=== PATIENT | female | born 1940 | race Caucasian/White ===

== ENCOUNTER 2018-02-17 08:50 | Inpatient (IN) | payer MEDICARE ==
[2018-02-13 10:54] LABS: BASOPHILS % (AUTO) 0.3 % (0-1); EOSINOPHILS % (AUTO) 0 % (0-6); LYMPHOCYTES # (AUTO) 1.6 X10'3 (1.1-4.8); LYMPHOCYTES % (AUTO) 23.7 % (21-51); MEAN CORPUSCULAR HEMOGLOBIN 30.3 PG (27.0-31.0); MEAN CORPUSCULAR HGB CONC 34.3 % (33.0-36.5); MEAN CORPUSCULAR VOLUME 88.5 FL (78-98); MEAN PLATELET VOLUME 9.1 FL (7.4-10.4); MONOCYTES # (AUTO) 0.5 X10'3 (0-0.9); MONOCYTES % (AUTO) 7.3 % (2-12); NEUTROPHILS # (AUTO) 4.6 X10'3 (1.8-7.7); NEUTROPHILS % (AUTO) 68.7 % (42-75); PRE OP HEMATOCRIT 35.7 % (35.0-45.0); PRE OP HEMOGLOBIN 12.2 g/dL (12.0-16.0); PRE OP PLATELET COUNT 200 X10'3 (140-440); RED BLOOD COUNT 4.04 X10'6 (4.20-5.60); RED CELL DISTRIBUTION WIDTH 13.8 % (11.5-14.5)
[2018-02-13 11:01] LABS: CLARITY,URINE CLEAR (Clear); COLOR,URINE YELLOW (Yellow); GLUCOSE, URINE NEGATIVE (Neg); KETONES,URINE NEGATIVE (Neg); LEUKOCYTE ESTERASE ,URINE NEGATIVE (Neg); NITRITES, URINE NEGATIVE (Neg); OCCULT BLOOD,URINE NEGATIVE (Neg); PH,URINE 5.5 (4.8-8.0); PROTEIN,URINE NEGATIVE (Neg); UROBILINOGEN,URINE 0.2 E.U/dL (0.2-1.0)
[2018-02-13 11:08] LABS: UA COLLECTION TYPE CLN CATCH MIDSTREAM
[2018-02-13 11:08] LABS: PRE OP INR 0.9 INR; PRE OP PROTIME 9.6 SECONDS (9.0-12.0)
[2018-02-13 11:12] LABS: ALBUMIN 3.5 G/DL (3.4-5.0); ALBUMIN/GLOBULIN RATIO 0.9 (1.1-1.5); ALKALINE PHOSPHATASE 80 IU/L (46-116); BLOOD UREA NITROGEN 21 MG/DL (7-18); BUN/CREATININE RATIO 23.6 (6.6-38.0); CALCIUM 9.3 MG/DL (8.5-10.1); CHLORIDE 105 MMOL/L (99-107); CREATININE 0.89 MG/DL (0.40-0.90); PRE OP ALT 19 U/L (30-65); PRE OP ANION GAP 6 (8-16); PRE OP AST 18 U/L (10-37); PRE OP BILIRUB, TOTAL 0.3 MG/DL (0.0-1.0); PRE OP GLUCOSE 90 MG/DL (70-104); PRE OP POTASSIUM 3.7 MMOL/L (3.4-5.1); PRE OP SODIUM 141 MMOL/L (135-145); TOTAL CARBON DIOXIDE 30.2 MMOL/L (24-32); TOTAL PROTEIN 7.5 G/DL (6.4-8.2); eGFR 62 ML/MIN
[2018-02-17] VITALS (20 sets, daily range): BP systolic 92–130; BP diastolic 42–80
[~2018-02-17] VITALS: Ht 160 cm; Wt 67.1 kg
[~2018-02-17 08:50] MED LIST: ALPR-623 PO; CALC-1051 PO; CHOL2000 PO; CLON0.1T PO; GLUC100017 PO; LACT1CAP65 PO; LEVO15TA5 PO; MELA3TAB PO; PANT20TA3 PO; VANCOMYCIN INJ 1000 MG in NORMAL SALINE 250ml IV.SOLN IV ONE; VENL150T3 PO; acetaminophen 325mg tablet PO ONE; ceFAZolin 2gm in dextrose, iso 100 ML IV ONE; cefazolin/dext.iso 2gm/50ml 50 ML IV ONE; famotidine 20mg tablet PO ONE; gabapentin 300mg capsule PO ONE; oxyCODONE SR 10mg (sust. release) tab PO ONE; ringers solution, lacted 1,000 ML IV SCH; tranexamic acid inj. 1,000 MG in normal saline 100ml IV soln 90 ML IV ONE
[2018-02-17] MEDS ORDERED: LIDOcaine 1% (10mg/ml) 2ml vial ONE (09:10)
[2018-02-17] MEDS ORDERED: bacitracin inj 150,000 UNIT in sodium chloride irrig. sol 3,000 ML IR ONE (10:00)
[2018-02-17] MEDS ORDERED: ROPIVAcaine 0.5% (5mg/ml) 30ml vial ONE ×2 (10:11→12:17)
[2018-02-17] MEDS ORDERED: MORPHINE SULFATE/PF 0.5 MG/ML 10ML AMPUL ONE (10:26)
[2018-02-17] MEDS ORDERED: dexamethasone sod phosphate 4mg/ml inj. ONE (10:28)
[2018-02-17] MEDS ORDERED: BUPIVAcaine/PF 7.5mg/ml (0.75%) 10ml vial ONE (10:28)
[2018-02-17] MEDS ORDERED: propofol inj 20 ML IV ONE ×3 (10:28)
[2018-02-17] MEDS ORDERED: ondansetron/PF 4mg/2ml inj ONE (10:28)
[2018-02-17] MEDS ORDERED: ceFAZolin 1000mg inj ONE (12:00)
[2018-02-17] MEDS ORDERED: ALPRAZolam 0.25mg tablet PO PRN (12:50)
[2018-02-17] MEDS ORDERED: HYDROmorphone inj. 0.5 MG/0.5 ML DISP.SYRIN IV PRN (12:55)
[2018-02-17] MEDS ORDERED: diphenhydrAMINE 25mg capsule PO PRN ×2 (12:55)
[2018-02-17] MEDS ORDERED: ondansetron/PF 4mg/2ml inj IV PRN (12:55)
[2018-02-17] MEDS ORDERED: magnesium hydroxide 30ml (MOM) UD suspension PO PRN (12:55)
[2018-02-17] MEDS ORDERED: bisacodyl 10mg suppository rectal RC PRN (12:55)
[2018-02-17] MEDS ORDERED: acetaminophen 325mg tablet PO PRN (12:55)
[2018-02-17] MEDS ORDERED: morphine 4 MG/ML inj SYRINge IV PRN (13:15)
[2018-02-17] MEDS: potassium cl 20mEq in 1/2 NS 1,000 ML IV SCH ×2 (15:13→23:52)
[2018-02-17] MEDS: gabapentin 300mg capsule PO SCH ×2 (15:34→20:09)
[2018-02-17] MEDS: ceFAZolin inj. 1,000 MG in normal saline 100ml IV soln 100 ML IV SCH ×2 (15:35→23:52)
[2018-02-17] MEDS ORDERED: vancomycin/NS 1 GM ADD-VANTAGE 250 ML IV SCH (20:00)
[2018-02-17] MEDS: celeCOXIB 100mg capsule PO SCH (20:09)
[2018-02-17] MEDS: sennosides 8.6mg tablet PO SCH (20:10)
[2018-02-17] MEDS: ascorbic acid 500mg tablet PO SCH (20:10)
[2018-02-17] MEDS: cloNIDine 0.1 mg tablet PO SCH (21:00)
[2018-02-17] MEDS: oxyCODONE/APAP 5-325mg tablet PO PRN (23:52)
[2018-02-18 02:00] VITALS: BP 113/53
[2018-02-18 04:23] LABS: BASOPHILS % (AUTO) 0.2 % (0-1); EOSINOPHILS # (AUTO) 0.1 X10'3 (0-0.9); EOSINOPHILS % (AUTO) 0.7 % (0-6); HEMATOCRIT 28.3 % (35.0-45.0); HEMOGLOBIN 9.8 g/dl (12.0-16.0); LYMPHOCYTES # (AUTO) 1.5 X10'3 (1.1-4.8); LYMPHOCYTES % (AUTO) 17.7 % (21-51); MEAN CORPUSCULAR HEMOGLOBIN 30.8 PG (27.0-31.0); MEAN CORPUSCULAR HGB CONC 34.6 % (33.0-36.5); MEAN CORPUSCULAR VOLUME 89.3 FL (78-98); MEAN PLATELET VOLUME 9.4 FL (7.4-10.4); MONOCYTES # (AUTO) 0.8 X10'3 (0-0.9); MONOCYTES % (AUTO) 9.5 % (2-12); NEUTROPHILS # (AUTO) 6.1 X10'3 (1.8-7.7); NEUTROPHILS % (AUTO) 71.9 % (42-75); PLATELET COUNT 161 X10'3 (140-440); RED BLOOD COUNT 3.17 X10'6 (4.20-5.60); RED CELL DISTRIBUTION WIDTH 13.7 % (11.5-14.5); WHITE BLOOD COUNT 8.5 X10'3 (4.5-11.0)
[2018-02-18 04:26] LABS: INR 1.3 INR; PROTHROMBIN TIME 13.8 SECONDS (9.0-12.0)
[2018-02-18 04:36] LABS: ANION GAP 8 (8-16); CHLORIDE 105 MMOL/L (99-107); POTASSIUM 3.8 MMOL/L (3.5-5.1); SODIUM 139 MMOL/L (135-145); TOTAL CARBON DIOXIDE 26.4 MMOL/L (24-32)
[2018-02-18 05:30] VITALS: BP 104/62
[2018-02-18] MEDS: oxyCODONE/APAP 5-325mg tablet PO PRN ×2 (05:36→17:27)
[2018-02-18] MEDS: pantoprazole 40mg Tablet.DR PO SCH (07:30)
[2018-02-18] MEDS: multivitamins, therapeutics tablet PO SCH (08:00)
[2018-02-18] MEDS ORDERED: non-formulary drug (Pantoprazole Sodium (Protonix) 1 TAB) PO SCH (08:00)
[2018-02-18] MEDS: celeCOXIB 100mg capsule PO SCH ×2 (08:00→20:30)
[2018-02-18] MEDS: venlafaxine XR 75mg capsule (Q24H) PO SCH (08:00)
[2018-02-18] MEDS: ascorbic acid 500mg tablet PO SCH ×2 (08:00→20:30)
[2018-02-18] MEDS ORDERED: non-formulary drug (Venlafaxine HCl (Venlafaxine HCl ER) 1 TAB) PO SCH (08:00)
[2018-02-18] MEDS: gabapentin 300mg capsule PO SCH ×3 (08:00→20:30)
[2018-02-18 10:00] VITALS: BP 97/60
[2018-02-18] MEDS ORDERED: warfarin 5mg tablet PO ONE (10:00)
[2018-02-18] MEDS: potassium cl 20mEq in 1/2 NS 1,000 ML IV SCH ×3 (12:14→20:52)
[2018-02-18 14:30] VITALS: BP 134/62
[2018-02-18 18:00] VITALS: BP 103/56
[2018-02-18] MEDS: sennosides 8.6mg tablet PO SCH (20:30)
[2018-02-18] MEDS: cloNIDine 0.1 mg tablet PO SCH (21:00)
[2018-02-18 22:00] VITALS: BP 121/61
[2018-02-19] MEDS: potassium cl 20mEq in 1/2 NS 1,000 ML IV SCH ×2 (04:52→09:26)
[2018-02-19 05:00] VITALS: BP 145/72
[2018-02-19] MEDS: oxyCODONE/APAP 5-325mg tablet PO PRN ×3 (05:27→14:32)
[2018-02-19 06:04] LABS: BASOPHILS % (AUTO) 0.3 % (0-1); EOSINOPHILS # (AUTO) 0.1 X10'3 (0-0.9); EOSINOPHILS % (AUTO) 1.1 % (0-6); HEMATOCRIT 30.5 % (35.0-45.0); HEMOGLOBIN 10.5 g/dl (12.0-16.0); LYMPHOCYTES # (AUTO) 1.9 X10'3 (1.1-4.8); LYMPHOCYTES % (AUTO) 27.6 % (21-51); MEAN CORPUSCULAR HEMOGLOBIN 30.7 PG (27.0-31.0); MEAN CORPUSCULAR HGB CONC 34.3 % (33.0-36.5); MEAN CORPUSCULAR VOLUME 89.5 FL (78-98); MEAN PLATELET VOLUME 9.2 FL (7.4-10.4); MONOCYTES # (AUTO) 0.7 X10'3 (0-0.9); MONOCYTES % (AUTO) 10.3 % (2-12); NEUTROPHILS # (AUTO) 4.2 X10'3 (1.8-7.7); NEUTROPHILS % (AUTO) 60.7 % (42-75); PLATELET COUNT 167 X10'3 (140-440); RED BLOOD COUNT 3.41 X10'6 (4.20-5.60)
[2018-02-19 06:12] LABS: INR 1.6 INR; PROTHROMBIN TIME 16.7 SECONDS (9.0-12.0)
[2018-02-19] MEDS: LACTOSE-FREE FOOD 237ML (BOOST) PO SCH ×3 (08:00→18:00)
[2018-02-19] MEDS: pantoprazole 40mg Tablet.DR PO SCH (08:19)
[2018-02-19] MEDS: celeCOXIB 100mg capsule PO SCH ×2 (08:19→20:13)
[2018-02-19] MEDS: ascorbic acid 500mg tablet PO SCH ×2 (08:20→20:13)
[2018-02-19] MEDS: gabapentin 300mg capsule PO SCH ×3 (08:20→21:39)
[2018-02-19] MEDS: multivitamins, therapeutics tablet PO SCH (08:20)
[2018-02-19] MEDS: venlafaxine XR 75mg capsule (Q24H) PO SCH (08:20)
[2018-02-19 10:00] VITALS: BP 144/76
[2018-02-19] MEDS ORDERED: warfarin 3mg tablet PO ONE (10:00)
[2018-02-19] MEDS ORDERED: acetaminophen 325mg tablet PO PRN (12:55)
[2018-02-19 18:00] VITALS: BP 140/92
[2018-02-19] MEDS: sennosides 8.6mg tablet PO SCH (20:13)
[2018-02-19] MEDS: cloNIDine 0.1 mg tablet PO SCH (21:39)
[2018-02-19 22:00] VITALS: BP 119/71
[2018-02-20 05:43] LABS: BASOPHILS % (AUTO) 0.2 % (0-1); EOSINOPHILS % (AUTO) 0.8 % (0-6); HEMATOCRIT 28.7 % (35.0-45.0); HEMOGLOBIN 9.8 g/dl (12.0-16.0); LYMPHOCYTES # (AUTO) 1.7 X10'3 (1.1-4.8); LYMPHOCYTES % (AUTO) 26.6 % (21-51); MEAN CORPUSCULAR HEMOGLOBIN 30.6 PG (27.0-31.0); MEAN CORPUSCULAR HGB CONC 34.3 % (33.0-36.5); MEAN CORPUSCULAR VOLUME 89.3 FL (78-98); MONOCYTES # (AUTO) 0.7 X10'3 (0-0.9); MONOCYTES % (AUTO) 10.7 % (2-12); NEUTROPHILS # (AUTO) 3.9 X10'3 (1.8-7.7); NEUTROPHILS % (AUTO) 61.7 % (42-75); PLATELET COUNT 161 X10'3 (140-440); RED BLOOD COUNT 3.21 X10'6 (4.20-5.60); WHITE BLOOD COUNT 6.4 X10'3 (4.5-11.0)
[2018-02-20 05:46] LABS: INR 1.5 INR; PROTHROMBIN TIME 15.3 SECONDS (9.0-12.0)
[2018-02-20 06:00] VITALS: BP 127/71
[2018-02-20] MEDS: celeCOXIB 100mg capsule PO SCH (07:26)
[2018-02-20] MEDS: multivitamins, therapeutics tablet PO SCH (07:27)
[2018-02-20] MEDS: pantoprazole 40mg Tablet.DR PO SCH (07:27)
[2018-02-20] MEDS: ascorbic acid 500mg tablet PO SCH (07:27)
[2018-02-20] MEDS: gabapentin 300mg capsule PO SCH (07:27)
[2018-02-20] MEDS: venlafaxine XR 75mg capsule (Q24H) PO SCH (07:27)
[2018-02-20] MEDS: LACTOSE-FREE FOOD 237ML (BOOST) PO SCH (08:00)
[2018-02-20] MEDS ORDERED: ASPI81TA52 PO (08:18)
[2018-02-20] MEDS ORDERED: WALKERFR (08:19)
[2018-02-20] MEDS ORDERED: warfarin 3mg tablet PO ONE (10:00)
== END 2018-02-20 10:59 | disposition home health service (06) | DRG 470 ==
LOC: PAS IN 08:50 → EDSTATUS 11:00 → ORTHO 4S 13:50
PROVIDERS: ADMIT Specialist; ATTEND Specialist
PROC: 0SRC0J9 Replacement of Right Knee Joint with Synthetic Substitute, Cemented, Open Approach (ICD-10-PCS; principal; 2018-02-17 10:28)
DX: M17.11 Unilateral primary osteoarthritis, right knee (principal); D62 Acute posthemorrhagic anemia; K21.9 Gastro-esophageal reflux disease without esophagitis; F32.9 Major depressive disorder, single episode, unspecified; F41.9 Anxiety disorder, unspecified; Z79.899 Other long term (current) drug therapy; Z87.891 Personal history of nicotine dependence; Z86.14 Personal history of Methicillin resistant Staphylococcus aureus infection; Z87.11 Personal history of peptic ulcer disease; Z90.49 Acquired absence of other specified parts of digestive tract
CPT/HCPCS: 36415; 73560; 80051; 80053; 81003; 85025; 85610; 85730; 87070; 97110; 97116; 97161; 97530; A6258; A6449; A6455; A7000; C1713; C1758; C1776; J0690; J1100; J2274; J2405; J2704; J2795; J3370; J3490; J7030; J7120

== ENCOUNTER 2024-07-16 11:59 | Outpatient (CLI) | payer MEDICARE ==
[~2024-07-16 11:59] MED LIST changes: +ASPI81TA52 PO; -MELA3TAB PO; +MELA3TAB39 PO; +PANT20TA18 PO; -PANT20TA3 PO; -VANCOMYCIN INJ 1000 MG in NORMAL SALINE 250ml IV.SOLN IV ONE; +WALKERFR; -acetaminophen 325mg tablet PO ONE; -ceFAZolin 2gm in dextrose, iso 100 ML IV ONE; -cefazolin/dext.iso 2gm/50ml 50 ML IV ONE; -famotidine 20mg tablet PO ONE; -gabapentin 300mg capsule PO ONE; -oxyCODONE SR 10mg (sust. release) tab PO ONE; -ringers solution, lacted 1,000 ML IV SCH; -tranexamic acid inj. 1,000 MG in normal saline 100ml IV soln 90 ML IV ONE
[2024-07-16 13:23] LABS: BASOPHILS % (AUTO) 0.4 % (0-1); BILIRUBIN,URINE NEGATIVE (Neg); CLARITY,URINE CLEAR (Clear); COLOR,URINE YELLOW (Yellow); EOSINOPHILS % (AUTO) 0.4 % (0-6); GLUCOSE, URINE NEGATIVE (Neg); HEMATOCRIT 36.8 % (35.0-45.0); HEMOGLOBIN 12.4 g/dl (12.0-16.0); KETONES,URINE NEGATIVE (Neg); LEUKOCYTE ESTERASE ,URINE NEGATIVE (Neg); LYMPHOCYTES # (AUTO) 1.9 X10'3 (1.1-4.8); LYMPHOCYTES % (AUTO) 22.6 % (21-51); MEAN CORPUSCULAR HEMOGLOBIN 30.5 PG (27.0-31.0); MEAN CORPUSCULAR HGB CONC 33.6 g/dL (33.0-36.5); MEAN CORPUSCULAR VOLUME 90.7 FL (78-98); MEAN PLATELET VOLUME 8.6 FL (7.4-10.4); MONOCYTES # (AUTO) 0.6 X10'3 (0-0.9); MONOCYTES % (AUTO) 6.9 % (2-12); NEUTROPHILS # (AUTO) 5.7 X10'3 (1.8-7.7); NEUTROPHILS % (AUTO) 69.7 % (42-75); NITRITES, URINE NEGATIVE (Neg); OCCULT BLOOD,URINE NEGATIVE (Neg); PH,URINE 7.5 (4.8-8.0); PLATELET COUNT 232 X10'3 (140-440); PROTEIN,URINE NEGATIVE (Neg); RED BLOOD COUNT 4.06 X10'6 (4.20-5.60); RED CELL DISTRIBUTION WIDTH 14.4 % (11.5-14.5); UROBILINOGEN,URINE 0.2 E.U/dL (0.2-1.0); WHITE BLOOD COUNT 8.2 X10'3 (4.5-11.0)
[2024-07-16 13:28] LABS: UA COLLECTION TYPE NON-SPECIFIED
[2024-07-16 13:49] LABS: ALANINE AMINOTRANSFERASE 16 U/L (12-78); ALBUMIN 3.1 G/DL (3.4-5.0); ALBUMIN/GLOBULIN RATIO 0.8 (1.1-1.5); ALKALINE PHOSPHATASE 89 IU/L (46-116); AMYLASE 83 U/L (25-115); ANION GAP 5 (8-16); ASPARTATE AMINO TRANSFERASE 14 U/L (10-37); BILIRUBIN,TOTAL 0.3 MG/DL (0.1-1.0); BLOOD UREA NITROGEN 20 MG/DL (7-18); CALCIUM 10.3 MG/DL (8.5-10.1); CHLORIDE 103 MMOL/L (99-107); CREATININE 0.74 MG/DL (0.40-0.90); GLUCOSE 86 MG/DL (70-104); LIPASE 39 U/L (16-77); POTASSIUM 4.1 MMOL/L (3.5-5.1); SODIUM 138 MMOL/L (135-145); TOTAL CARBON DIOXIDE 29.8 MMOL/L (24-32); eGFR 75 ML/MIN
== END 2024-07-16 23:59 | disposition home or self-care (01) ==
LOC: RAD 11:59
PROVIDERS: ATTEND Physician Assistant
DX: D25.9 Leiomyoma of uterus, unspecified (principal); J98.11 Atelectasis; K44.9 Diaphragmatic hernia without obstruction or gangrene; R19.7 Diarrhea, unspecified; K57.30 Diverticulosis of large intestine without perforation or abscess without bleeding; I70.0 Atherosclerosis of aorta; M43.16 Spondylolisthesis, lumbar region; R10.30 Lower abdominal pain, unspecified
CPT/HCPCS: 36415; 74176; 80053; 81003; 82150; 83690; 85025

== ENCOUNTER 2025-09-03 09:21 | Outpatient (CLI) | payer MEDICARE ==
--- NOTE | 2025-09-03 10:47 | RADIOLOGY REPORT ---
CLINICAL HISTORY: RIGHT UPPER QUADRANT PAIN TECHNIQUE: Transabdominal sonogram was performed of the right upper quadrant. COMPARISON: CT CT ABDOMEN PELVIS on DOS: 07/16/24 FINDINGS: The liver is normal in echogenicity. There is no focal parenchymal abnormality. No intrahepatic biliary ductal dilatation is present. The liver measures 13.9 cm. The gallbladder is normal with no evidence for stones or wall thickening. The common bile duct is normal in caliber, measuring 2 mm. The pancreas is not well seen. The right kidney is normal in echogenicity and measures 9.5 cm in length. There is no evidence for hydronephrosis or calculi. IMPRESSION: NO SIGNIFICANT SONOGRAPHIC ABNORMALITY OF THE IMAGED RIGHT UPPER QUADRANT.
== END 2025-09-03 23:59 | disposition home or self-care (01) ==
LOC: RAD 09:21
PROVIDERS: ATTEND Physician Assistant
DX: R10.11 Right upper quadrant pain (principal); K76.89 Other specified diseases of liver
CPT/HCPCS: 76700